=== PATIENT | female | born 1960 | race Caucasian/White ===

== ENCOUNTER 2020-09-10 06:54 | Outpatient (NON) | payer BC, SELFPAY ==
[2020-09-11 18:58] LABS: SARS-CoV-2 RNA PCR Negative
== END 2020-09-10 06:55 ==
PROVIDERS: PCP Family Medicine; Visit Provider Physician Assistant
DX: Z13.9 Encounter for screening, unspecified (principal); Z20.828 Contact with and (suspected) exposure to other viral communicable diseases
CPT/HCPCS: 87635; C9803; U0003

== ENCOUNTER → 2020-09-28 10:29 | Outpatient (CLI) | payer BC, SELFPAY ==
--- NOTE | ~2020-09-28 | DEXA_ITS ---
Bone Density Report Name: Edna Cummings Age: 60 Sex: Female Ethnicity: White Date of : 1960 Indication: postmenopausal; screening for osteoporosis; rheumatoid arthritis; Referring Provider: Beverley Black Study: Bone densitometry was performed. Exam Date: September 28, 2020 Accession number: [id number] Bone Density: Region BMD T-score Z-score Classification AP Spine (L1, L2, L3) 0.896 -1.1 0.1 Osteopenia Femoral Neck (Left) 0.678 -1.5 -0.4 Osteopenia Total Hip (Left) 0.876 -0.5 0.3 Normal Femoral Neck (Right) 0.680 -1.5 -0.3 Osteopenia Total Hip (Right) 0.821 -1.0 -0.2 Normal Total Hip Mean 0.849 -0.8 0.1 Normal World Health Organization criteria for BMD impression classify patients as: Normal (T-score at or above -1.0), Osteopenia (T-score between -1.0 and -2.5), or Osteoporosis (T-score at or below -2.5). 10-year Fracture Risk(1): Major Osteoporotic Fracture 9.2% Hip Fracture 0.9% Reported Risk Factors: [place] (), Neck BMD=0.680, BMI=22.6, rheumatoid arthritis (1) FRAX(R) Version 3.08. Fracture probability calculated for an untreated patient. Fracture probability may be lower if the patient has received treatment. Previous Exams: Region Exam Age BMD T-score BMD Change BMD Change Date g/cm2 vs Baseline vs Previous AP Spine(L1, L2, L3) 09/28/2020 60 0.896 -1.1 -0.049* -0.060* 03/21/2010 49 0.956 -0.6 0.011 0.011 03/04/2007 46 0.945 -0.7 Total Hip(Left) 09/28/2020 60 0.876 -0.5 -0.009 0.040* 03/21/2010 49 0.836 -0.9 -0.048* -0.048* 03/04/2007 46 0.884 -0.5 Total Hip(Right) 09/28/2020 60 0.821 -1.0 -0.035* -0.003 03/21/2010 49 0.824 -1.0 -0.032* -0.032* 03/04/2007 46 0.856 -0.7 *Denotes significance at 95% confidence level, LSC for AP Spine = 0.022 g/cm2, LSC for Total Hip = 0.027 g/cm2 Clinical Information Provided by Patient: Has rheumatoid arthritis Has used the following medications: Vitamin D, Calcium Patient maximum height was 65 Drinks caffeinated beverages Onset of menses at age 14 Number of children 3 Impression: The patient has low bone mass, based on the Left Femoral Neck T-score. The patient has an estimated ten-year risk of hip fracture of 0.9% and an estimated ten-year risk of major fracture of 9.2%, based on the WHO FRAX algorithm. The BMD for the AP Spi
== END ==
PROVIDERS: PCP Physician Assistant; Visit Provider Student in an Organized Health Care Education/Training Program
DX: Z78.0 Asymptomatic menopausal state (principal); M85.88 Other specified disorders of bone density and structure, other site; M85.852 Other specified disorders of bone density and structure, left thigh; M85.851 Other specified disorders of bone density and structure, right thigh
CPT/HCPCS: 77080